=== PATIENT | female | born 1985 | race Hispanic/Latino ===

== ENCOUNTER 2018-11-16 12:16 | Emergency (ER) | payer BC ==
[2018-11-16 12:28] VITALS: PULSE 87; RESP 18; TEMP 98.5; O2SAT 96
--- NOTE | 2018-11-24 12:44 | ED PDOC ---
Arrival/HPI - General Chief Complaint: Lower Extremity Problem/Injury Time Seen by Provider: 11/16/18 12:18 Historian: Patient - History of Present Illness Narrative History of Present Illness (Text): 11/24/18 12:46 33 y/o female with no significant PMH presents to the ED c/o right leg pain and bruising s/p injury 1 week ago. Pt was working in her attic when her right leg fell through the floor, causing immediate bruising. Pt has not been taking any medication for pain. She was seen at [facility] after the incident but did not receive any imaging. She is able to ambulate without difficulty. Presents to ED today for evaluation secondary to concerns about the severe bruising and persistent pain. Pain is located to right medial thigh and knee. Denies numbness, weakness, paresthesias, open wounds, or any other associated complaints. Past Medical History - Provider Review Nursing Documentation Reviewed: Yes - Infectious Disease Hx of Infectious Diseases: None - Reproductive Menopause: No - Psychiatric Hx Substance Use: No Family/Social History - Physician Review Nursing Documentation Reviewed: Yes Family/Social History: No Known Family HX Smoking Status: Never Smoked Hx Alcohol Use: No Hx Substance Use: No Allergies/Home Meds Allergies/Adverse Reactions: Allergies No Known Allergies Allergy (Verified 12/20/17 15:50) Review of Systems - Review of Systems Constitutional: Normal. absent: Fevers Eyes: Normal. absent: Vision Changes ENT: Normal. absent: Sore Throat, Sinus Congestion Respiratory: Normal. absent: SOB Cardiovascular: Normal. absent: Chest Pain, Palpitations, Syncope Gastrointestinal: Normal. absent: Abdominal Pain, Nausea, Vomiting Genitourinary Female: Normal Musculoskeletal: Other (right leg pain) Skin: Other (right leg ecchymosis) Neurological: Normal. absent: Headache, Dizziness Physical Exam Vital Signs Reviewed: Yes Vital Signs Temp Pulse Resp Pulse Ox 11/16/18 12:22 98.5 F 87 18 96 Temperature: Afebrile Pulse: Regular Respiratory Rate: Normal Appearance: Positive for: Well-Appearing, Non-Toxic, Comfortable Pain Distress: None Mental Status: Positive for: Alert and Oriented X 3 - Systems Exam Head: Present: Atraumatic, Normocephalic Pupils: Present: PERRL Extroacular Muscles: Present: EOMI Conjunctiva: Present: Normal Mouth: Present: Moist Mucous Membranes Neck: Present: Normal Range of Motion. No: Meningeal Signs Back: Present: Normal Inspection. No: CVA Tenderness, Midline Tenderness, Paraspinal Tenderness Upper Extremity: Present: Normal Inspection, Normal ROM, NORMAL PULSES, Neurovascularly Intact, Capillary Refill < 2s. No: Cyanosis, Edema, Temperature Abnormalties Lower Extremity: Present: NORMAL PULSES, Normal ROM, Tenderness (over ecchymosis right thigh), Temperature Abnormalties (mild increased warmth over site of bruising on right thigh), Neurovascularly Intact, Capillary Refill < 2 s, Other (Large area of ecchymosis over right distal thigh and lateral right knee, appears old). No: CALF TENDERNESS Neurological: Present: GCS=15, CN II-XII Intact, Speech Normal, Motor Func Grossly Intact, Normal Sensory Function, Gait Normal Skin: Present: Warm, Dry Psychiatric: Present: Alert, Oriented x 3, Normal Insight, Normal Concentration, Normal Affect, Normal Mood Medical Decision Making ED Course and Treatment: Initial Plan: * Right hip XR * Right femur XR * Right Knee XR * Right leg venous duplex * Pain medication On initial evaluation, patient is well appearing and able to ambulate without assistance. She states she does not have time to wait for diagnostic testing and would like to leave ED. Will have pt sign out AMA. Advised PMD followup. The patient is choosing to leave against medical advice. I have personally explained to the patient that choosing to do so may result in permanent bodily harm, disability, or . I have discussed at great length that without further evaluation and monitoring there may be unforeseen circumstances and/or deterioration causing permanent bodily harm or as a result of their choice. The patient is alert, oriented, and shows the mental capacity to make clear decisions regarding the patients health care at this time. The patient continues to wish to leave against medical advice. In light of the patients decision to leave against medical advice, follow-up has been arranged and the patient is aware of the importance to following up as instructed. The patient has been advised that they should return to the emergency room immediately if they change their mind at any time, or if their condition begins to change or worsen in any way. Disposition/Present on Arrival - Present on Arrival Any Indicators Present on Arrival: No History of DVT/PE: No History of Uncontrolled Diabetes: No Urinary Catheter: No History of Decub. Ulcer: No History Surgical Site Infection Following: None - Disposition Have Diagnosis and Disposition been Completed?: No Diagnosis: Left against medical advice, Right leg injury, Ecchymosis Disposition: AGAINST MEDICAL ADVICE Disposition Time: 14:30 Condition: GUARDED Forms: [employer] (Armenian)
== END 2018-11-16 14:31 | disposition left against medical advice (07) ==
LOC: ED 12:16
DX: S89.91XA Unspecified injury of right lower leg, initial encounter (principal); S80.11XA Contusion of right lower leg, initial encounter; W19.XXXA Unspecified fall, initial encounter

== ENCOUNTER 2018-11-16 23:58 | Emergency (ER) | payer BC ==
[2018-11-17 00:36] VITALS: BMI 27.1
[2018-11-17] MEDS ORDERED: Sodium Chloride 0.9% 1,000 ML IV STA (00:56)
--- NOTE | 2018-11-17 01:02 | ED PDOC ---
Arrival/HPI - General Historian: Patient - History of Present Illness Narrative History of Present Illness (Text): 11/17/18 00:58 33 y/o female, no significant pmh, nkda, c/o rt. thigh bruising s/p stepped on a hole and caught the rt. knee/femur in it. Aching pain, on and off, improved, still cramping, no calf/ankle/foot pain, no numbness or tingling, bruising is resolving, here today because the cramping is still there, no fever or chills, no other medical or psychological complaints. <Chirag Carrasquillo - Last Filed: 11/17/18 02:17> <Jamal Morales - Last Filed: 11/17/18 02:22> - General Chief Complaint: Lower Extremity Problem/Injury Past Medical History - Provider Review Nursing Documentation Reviewed: Yes - Infectious Disease Hx of Infectious Diseases: None - Psychiatric Hx Substance Use: No - Anesthesia Hx Anesthesia: Yes Hx Anesthesia Reactions: No Hx Malignant Hyperthermia: No <Chirag Carrasquillo - Last Filed: 11/17/18 02:17> Family/Social History - Physician Review Nursing Documentation Reviewed: Yes Family/Social History: Unknown Family HX Smoking Status: Never Smoked Hx Alcohol Use: No Hx Substance Use: No <Chirag Carrasquillo - Last Filed: 11/17/18 02:17> Allergies/Home Meds <Chirag Carrasquillo - Last Filed: 11/17/18 02:17> <Jamal Morales - Last Filed: 11/17/18 02:22> Allergies/Adverse Reactions: Allergies No Known Allergies Allergy (Verified 12/20/17 15:50) Review of Systems - Review of Systems Constitutional: absent: Fatigue, Fevers Eyes: absent: Vision Changes ENT: absent: Hearing Changes Respiratory: absent: SOB, Cough Cardiovascular: absent: Chest Pain Gastrointestinal: absent: Abdominal Pain, Constipation, Diarrhea, Nausea, Vomiting Musculoskeletal: Myalgias. absent: Arthralgias, Back Pain, Neck Pain, Joint Swelling Skin: absent: Rash, Pruritis Neurological: absent: Headache, Dizziness Psychiatric: absent: Anxiety, Depression, Suicidal Ideation <Chirag Carrasquillo - Last Filed: 11/17/18 02:17> Physical Exam - Systems Exam Head: Present: Atraumatic, Normocephalic Pupils: Present: PERRL Extroacular Muscles: Present: EOMI Conjunctiva: Present: Normal Mouth: Present: Moist Mucous Membranes Neck: Present: Normal Range of Motion Respiratory/Chest: Present: Clear to Auscultation, Good Air Exchange. No: Respiratory Distress, Accessory Muscle Use Cardiovascular: Present: Regular Rate and Rhythm, Normal S1, S2. No: Murmurs Abdomen: No: Tenderness, Distention, Peritoneal Signs Back: Present: Normal Inspection Upper Extremity: Present: Normal Inspection. No: Cyanosis, Edema Lower Extremity: Present: Normal Inspection, Other (RLE: visible hematoma resolving ecchymosis from the mid femur to the distal femur region with mild +ttp on the upper knee region and mild swelling to the knee joint, negative wade and perez signs, no cellulitis or ulcer, FROM without limtiations, sensation intact, motor 5/5, +DPPT pulses, capillary refill< 2 seconds, neurovascular intact, no signs of compartment syndrome. ). No: Edema Neurological: Present: GCS=15, CN II-XII Intact, Speech Normal Skin: Present: Warm, Dry, Normal Color. No: Rashes Psychiatric: Present: Alert, Oriented x 3, Normal Insight, Normal Concentration <Chirag Carrasquillo - Last Filed: 11/17/18 02:17> Vital Signs Temp Pulse Resp BP Pulse Ox 11/17/18 01:37 98.6 F 68 17 106/69 100 <Jamal Morales - Last Filed: 11/17/18 02:22> Medical Decision Making ED Course and Treatment: 11/17/18 01:01 -labs -sonogram -rt. knee xray -IVF and toradol -Observe and reassess -Urine hcg is negative -Rt. knee xray ER wet read: no fracture or dislocation. -RLE Venuous doppler: as per preliminary report, no acute DVT but there is hematoma 7.7cmx7.8cm -Labs are nonsignificant -CPK within normal limit -Pain improved -Discharge home with motrin, flexeril, heat compression, crutches as needed, follow up with your own pmd and orthopedic within 2 days, return to the ER for any new or worsening signs or symptoms. 11/17/18 02:09 11/17/18 02:18 - RAD Interpretation Radiology Orders: 11/17/18 00:56 KNEE W PATELLA RIGHT 3 VIEW [RAD] Stat DUPLEX LOWER EXTRM VEIN RIGHT [US] Stat Rt. knee xray: RLE Venuous doppler: as per preliminary report, no acute DVT but there is hematoma 7.7cmx7.8cm [employer] Internship: Radiologist - Medication Orders Current Medication Orders: Sodium Chloride (Sodium Chloride 0.9%) 1,000 mls @ 999 mls/hr IV .Q1H1M STA Stop: 11/17/18 01:56 <Chirag Carrasquillo Q - Last Filed: 11/17/18 02:17> - Lab Interpretations Lab Results: Total Bilirubin 0.3 mg/dL (0.2-1.3) 11/17/18 01:24 AST 32 U/L (14-36) 11/17/18 01:24 ALT 13 U/L (7-56) 11/17/18 01:24 Alkaline Phosphatase 57 U/L (38-126) 11/17/18 01:24 Total Protein 7.9 g/dL (5.8-8.3) 11/17/18 01:24 Albumin 4.4 g/dL (3.0-4.8) 11/17/18 01:24 Globulin 3.5 gm/dL 11/17/18 01:24 Albumin/Globulin Ratio 1.3 (1.1-1.8) 11/17/18 01:24 - RAD Interpretation Radiology Orders: 11/17/18 00:56 KNEE W PATELLA RIGHT 3 VIEW [RAD] Stat DUPLEX LOWER EXTRM VEIN RIGHT [US] Stat - Medication Orders Current Medication Orders: Discontinued Medications Sodium Chloride (Sodium Chloride 0.9%) 1,000 mls @ 999 mls/hr IV .Q1H1M STA Stop: 11/17/18 01:56 Last Admin: 11/17/18 01:31 Dose: 999 mls/hr eMAR Start Stop Document 11/17/18 01:31 EB (Rec: 11/17/18 01:32 EB [facility] [id number]) Intravenous Solution Start Date 11/17/18 Start Time 01:32 Ketorolac Tromethamine (Toradol) 30 mg IVP STAT STA Stop: 11/17/18 02:18 <Jamal Morales - Last Filed: 11/17/18 02:22> - PA / [employer] / Resident Statement LARISSA has reviewed & agrees with the documentation as recorded. <Chirag Carrasquillo - Last Filed: 11/17/18 02:17> - PA / [employer] / Resident Statement LARISSA has reviewed & agrees with the documentation as recorded. LARISSA has examined the patient and agrees with the treatment plan. <Jamal Morales - Last Filed: 11/17/18 02:22> Disposition/Present on Arrival - Present on Arrival Any Indicators Present on Arrival: No History of DVT/PE: No History of Uncontrolled Diabetes: No Urinary Catheter: No History of Decub. Ulcer: No History Surgical Site Infection Following: None - Disposition Have Diagnosis and Disposition been Completed?: Yes Disposition Time: Patient Plan: Discharge <Chirag Carrasquillo - Last Filed: 11/17/18 02:17> <Jamal Morales - Last Filed: 11/17/18 02:22> - Disposition Diagnosis: Contusion, Hematoma Disposition: HOME/ ROUTINE Patient Problems: Current Active Problems Problem Status Onset Contusion Acute Hematoma Acute Condition: IMPROVED Additional Instructions: -Discharge home with motrin, flexeril, heat compression, crutches as needed, follow up with your own pmd and orthopedic within 2 days, return to the ER for any new or worsening signs or symptoms. Prescriptions: Cyclobenzaprine [Cyclobenzaprine HCl] 10 mg PO TID PRN #21 tab PRN Reason: Other Ibuprofen [Motrin] 600 mg PO QID PRN #30 tab PRN Reason: Other Referrals: Dominguez Yuen DO [Staff Provider] - Follow up with primary Ai Arambula MD [Staff Provider] - Follow up with primary Forms: [employer] ([place]an), WORK NOTE
[2018-11-17 01:51] LABS: BASO # 0.02 K/mm3 (0.0-2.0); BASO % 0.2 % (0.0-3.0); EOS # 0.2 (0.0-0.7); EOS % 1.6 % (1.5-5.0); HEMOGLOBIN 12.1 g/dL (12.0-16.0); LYMPH # 3.4 (1.2-3.4); LYMPH % 36.7 % (22.0-35.0); MEAN CELL VOLUME 87.6 fl (80.0-105.0); MEAN CORPUSCULAR HEMOGLOBIN 28.9 pg (25.0-35.0); MEAN CORPUSCULAR HGB CONC 33.1 g/dl (31.0-37.0); MEAN PLATELET VOLUME 9.1 fl (7.0-11.0); MONO # 0.5 (0.1-0.6); MONO % 5.8 % (1.0-6.0); RBC 4.18 10^6/uL (3.5-6.1); RED CELL DISTRIBUTION WIDTH 13.3 % (11.5-14.5); WHITE BLOOD COUNT 9.3 10^3/uL (4.5-11.0)
[2018-11-17 02:15] LABS: ALB/GLOB RATIO 1.3 (1.1-1.8); ALBUMIN 4.4 g/dL (3.0-4.8); ALT/SGPT 13 U/L (7-56); AST/SGOT 32 U/L (14-36); BLOOD UREA NITROGEN 16 mg/dL (7-21); CALCIUM 9.1 mg/dL (8.4-10.5); GFR NON-AFRICAN AMERICAN > 60
[2018-11-17 02:46] VITALS: BP 104/70; PULSE 72; RESP 16; TEMP 97.7; O2SAT 98
--- NOTE | 2018-11-17 06:00 | RAD ---
Date of service: 11/17/2018 PROCEDURE: Right Knee Radiographs. HISTORY: rt. knee injury COMPARISON: None. TECHNIQUE: 2 views obtained. FINDINGS: BONES: Normal. No fracture. JOINTS: Normal. No osteoarthritis. JOINT EFFUSION: None. OTHER FINDINGS: None. IMPRESSION: No evidence of acute fracture or dislocation.
--- NOTE | 2018-11-17 09:46 | US ---
PROCEDURE: Right lower extremity venous US HISTORY: Leg pain and swelling. Evaluate for DVT. PHYSICIAN(S): Vish Jj M.D. TECHNIQUE: Duplex sonography and color-flow Doppler with graded compression were used to evaluate the deep venous system of the right lower extremity. FINDINGS: The visualized deep venous system of the right lower extremity is sonographically normal and compressible. Normal waveforms and augmentation are seen. There is no sonographic evidence for deep venous thrombosis in the visualized segments of the right lower extremity. There is an oblong 7.5 cm complex fluid collection in the right lower thigh. Differential includes trauma or infection IMPRESSION: 1. No sonographic evidence for deep venous thrombosis in the visualized segments of the right lower extremity.
== END 2018-11-17 02:45 | disposition home or self-care (01) ==
LOC: ED 23:58
DX: S70.11XA Contusion of right thigh, initial encounter (principal); W22.8XXA Striking against or struck by other objects, initial encounter
CPT/HCPCS: 73562; 80053; 81025; 82550; 85025; 93971; 99284; J7030